=== PATIENT | male | born 1965 | race Caucasian/White ===

== ENCOUNTER 2017-07-11 00:48 | Inpatient (IN) | payer MEDICAID ==
[~2017-07-11] VITALS: Ht 172.7 cm; Wt 66.7 kg
[2017-07-11] VITALS (63 sets, daily range): BP systolic 62–149; BP diastolic 49–112
[2017-07-11] MEDS ORDERED: SODIUM CHLORIDE 0.9% 1,000 ML IV ONE (01:08)
[2017-07-11] MEDS ORDERED: PROPOFOL 10MG/ML 100ML 100 ML IV ONE (01:15)
[2017-07-11 01:25] LABS: BG BASE EXCESS -13.7 mmol/L (-2.0-2.0); BG CARBOXYHEMOGLOBIN 48.1 % (0.5-1.5); BG DEOXYHEMOGLOBIN 1.4 % (0.0-5.0); BG FRACTION INSPIRED OXYGEN 100; BG HCO3 ACT 16.3 mmol/L (22.0-26.0); BG METHEMOGLOBIN 0.3 % (0.0-1.5); BG OXYGEN SATURATION 97.3 % (92.0-98.5); BG OXYHEMOGLOBIN 50.2 % (94.0-97.0); BG PCO2 54.4 mmHg (35.0-45.0); BG PH 7.094 (7.350-7.450); BG PO2 504.9 mmHg (75.0-100.0); BG SAMPLE SITE RIGHT RADIAL; BG TOTAL HEMOGLOBIN 14.2 g/dL (12.0-18.0); BG VENT MODE AMBU BAG
[2017-07-11 01:28] LABS: BASOPHILS % 0.3 % (0.0-2.0); EOSINOPHILS % 1.7 % (0.0-5.0); HEMATOCRIT. 39.5 % (42.0-52.0); HEMOGLOBIN. 13.7 g/dL (14.0-18.0); LYMPHOCYTES % 47.3 % (20.0-50.0); MEAN CORPUSCULAR HEMOGLOBIN 34.1 pg (28.0-32.0); MEAN CORPUSCULAR VOLUME 98.6 fL (80.0-94.0); MEAN PLATELET VOLUME 8.1 fl (7.4-10.4); MONOCYTES % 2.3 % (2.0-8.0); NEUTROPHILS % 48.4 % (40.0-76.0); PLATELET 153 x1000/uL (130-400); RED BLOOD CELL COUNT 4.01 mill/uL (4.7-6.1); RED CELL DISTRIBUTION WIDTH 14.8 % (11.6-14.6)
[2017-07-11 01:44] LABS: CLARITY URINE CLEAR (CLEAR); COLOR URINE YELLOW (YELLOW); KETONES URINE NEGATIVE (NEGATIVE); LEUKOCYTE ESTERASE URINE NEGATIVE (NEGATIVE); NITRITE URINE NEGATIVE (NEGATIVE); OCCULT BLOOD URINE TRACE (NEGATIVE); PROTEIN URINE NEGATIVE (NEGATIVE); SPECIFIC GRAVITY URINE 1.009 (1.005-1.030); UROBILINOGEN URINE 0.2 E.U./dL (0.2-1.0)
[2017-07-11 01:53] LABS: CARBON DIOXIDE 16 mEq/L (21-32); CHLORIDE 103 mEq/L (98-107); ETHANOL BLOOD < 10 mg/dL
[2017-07-11 01:56] LABS: *AMPHETAMINES SCREEN URINE NEGATIVE (NEGATIVE); *BARBITURATES SCREEN URINE NEGATIVE (NEGATIVE); *BENZODIAZEPINES SCREEN URINE PRESUMTIVE POSITIVE (NEGATIVE); *COCAINE SCREEN URINE NEGATIVE (NEGATIVE); CANNABINOID URINE SCREEN NEGATIVE (NEGATIVE); METHADONE URINE SCREEN NEGATIVE (NEGATIVE); OPIATES URINE SCREEN NEGATIVE (NEGATIVE); PHENCYCLIDINE URINE SCREEN NEGATIVE (NEGATIVE)
[2017-07-11] MEDS ORDERED: ASPIRIN 300MG SUPP PR ONE (02:30)
[2017-07-11] MEDS ORDERED: FENTANYL CITRATE/PF 500 MCG in SODIUM CHLORIDE 0.9% 40 ML IV PRN ×2 (03:15→04:00)
[2017-07-11] MEDS ORDERED: POTASSIUM CHLORIDE INJ 40 MEQ in DEXT 5% WATER 250 ML IV ONE (03:45)
[2017-07-11] MEDS ORDERED: POTASSIUM CHLORIDE INJ 40 MEQ in DEXT 5% WATER 500 ML IV SCH (04:00)
[2017-07-11] MEDS ORDERED: NOREPINEPHRINE 8 MG in DEXT 5% WATER 242 ML IV PRN (05:56)
[2017-07-11 08:28] LABS: BG BASE EXCESS -7.1 mmol/L (-2.0-2.0); BG CARBOXYHEMOGLOBIN 2.3 % (0.5-1.5); BG DEOXYHEMOGLOBIN 9.2 % (0.0-5.0); BG FRACTION INSPIRED OXYGEN 100; BG HCO3 ACT 18.8 mmol/L (22.0-26.0); BG METHEMOGLOBIN 0.3 % (0.0-1.5); BG OXYGEN SATURATION 90.6 % (92.0-98.5); BG OXYHEMOGLOBIN 88.2 % (94.0-97.0); BG PCO2 39.2 mmHg (35.0-45.0); BG PH 7.298 (7.350-7.450); BG PO2 64.4 mmHg (75.0-100.0); BG SAMPLE SITE RIGHT BRACHIAL; BG TIDAL VOLUME(mL) 650 mL; BG TOTAL HEMOGLOBIN 12.4 g/dL (12.0-18.0); BG VENT MODE VENT - A/C; BG VENT RATE 15 set
[2017-07-11] MEDS: METHYLPREDNISOLONE SOD SUCC 40 MG/ML VIAL IV SCH ×3 (08:44→22:02)
[2017-07-11] MEDS: ENOXAPARIN 40MG/0.4ML SYR SUBCUT SCH (08:44)
[2017-07-11] MEDS: PANTOPRAZOLE SODIUM 40 MG/VIAL IV SCH (08:44)
[2017-07-11] MEDS: DEXT 5%/0.9% NACL 1,000 ML IV SCH (08:45)
[2017-07-11] MEDS: IPRATROPIUM/ALBUTEROL 0.5-3(2.5)MG/3ML NEB HHN SCH ×3 (10:11→15:44)
[2017-07-11] MEDS ORDERED: EPINEPHRINE 0.1MG/ML (1:10,000) 10ML SYR ONE (10:24)
[2017-07-11] MEDS ORDERED: VECURONIUM BROMIDE 10 MG/VIAL IV ONE (10:24)
[2017-07-11] MEDS ORDERED: SODIUM BICARBONATE 7.5% 0.9 MEQ/ML 50ML SYR IV ONE (10:24)
[2017-07-11] MEDS ORDERED: STERILE WATER FOR INJECTION 10ML VIAL ONE (10:24)
[2017-07-11] MEDS ORDERED: CALCIUM CHLORIDE 1GM/10ML SYR IV ONE (10:24)
[2017-07-11] MEDS ORDERED: ETOMIDATE 2MG/ML 10ML VIAL IV ONE (10:24)
[2017-07-11] MEDS ORDERED: PHEN100C4 PO (10:43)
[2017-07-11] MEDS: PROPOFOL 10MG/ML 100ML 100 ML IV PRN (10:48)
[2017-07-11] MEDS: FENTANYL CITRATE/PF 500 MCG in SODIUM CHLORIDE 0.9% 40 ML IV PRN ×2 (11:25→19:24)
[2017-07-11 11:49] LABS: HEMATOCRIT. 34.3 % (42.0-52.0); HEMOGLOBIN. 11.8 g/dL (14.0-18.0); MEAN CORPUSCULAR HEMOGLOBIN 32.9 pg (28.0-32.0); MEAN CORPUSCULAR VOLUME 95.8 fL (80.0-94.0); MEAN PLATELET VOLUME 7.9 fl (7.4-10.4); PLATELET 107 x1000/uL (130-400); RED BLOOD CELL COUNT 3.58 mill/uL (4.7-6.1); RED CELL DISTRIBUTION WIDTH 14.3 % (11.6-14.6)
[2017-07-11 12:01] LABS: INR 1.7; PROTHROMBIN TIME 17.8 sec (9.4-11.6)
[2017-07-11] MEDS: NOREPINEPHRINE 8 MG in DEXT 5% WATER 242 ML IV PRN ×2 (12:17→22:02)
[2017-07-11 12:29] LABS: CARBON DIOXIDE 21 mEq/L (21-32); CHLORIDE 112 mEq/L (98-107)
[2017-07-11 13:46] LABS: PLATELET ESTIMATE SLIGHTLY DECREASED
[2017-07-11] MEDS ORDERED: ASPIRIN 81MG TABLET PO SCH (14:00)
[2017-07-11] MEDS: PHENYTOIN SODIUM 250MG/5ML VIAL IV SCH ×2 (15:19→17:31)
[2017-07-11] MEDS ORDERED: VANCOMYCIN 2,000 MG in DEXT 5% WATER 500 ML IV NR (16:00)
[2017-07-11] MEDS ORDERED: PIPERACILLIN/TAZ 3.375G PREMIX 50 ML IV SCH (18:00)
[2017-07-11] MEDS: PIPERACILLIN/TAZ 3.375G PREMIX 50 ML IV SCH ×2 (18:56→23:43)
[2017-07-11] MEDS: VANCOMYCIN 1 G PREMIX 200 ML IV SCH (23:43)
[2017-07-12] VITALS (92 sets, daily range): BP systolic 86–127; BP diastolic 50–81
[2017-07-12] MEDS: IPRATROPIUM/ALBUTEROL 0.5-3(2.5)MG/3ML NEB HHN SCH ×6 (00:18→20:24)
[2017-07-12] MEDS: DEXT 5%/0.9% NACL 1,000 ML IV SCH ×2 (02:49→21:13)
[2017-07-12] MEDS: PROPOFOL 10MG/ML 100ML 100 ML IV PRN ×2 (02:49→16:06)
[2017-07-12] MEDS: PIPERACILLIN/TAZ 3.375G PREMIX 50 ML IV SCH ×4 (05:35→23:03)
[2017-07-12] MEDS: METHYLPREDNISOLONE SOD SUCC 40 MG/ML VIAL IV SCH ×3 (05:35→21:13)
[2017-07-12] MEDS: FENTANYL CITRATE/PF 500 MCG in SODIUM CHLORIDE 0.9% 40 ML IV PRN ×2 (05:59→15:41)
[2017-07-12 06:18] LABS: CARBON DIOXIDE 21 mEq/L (21-32); CHLORIDE 107 mEq/L (98-107)
[2017-07-12] MEDS ORDERED: PROPOFOL 10MG/ML 100ML 100 ML IV PRN (07:36)
[2017-07-12] MEDS: VANCOMYCIN 1 G PREMIX 200 ML IV SCH ×3 (07:50→23:03)
[2017-07-12 08:14] LABS: BG BASE EXCESS -3.6 mmol/L (-2.0-2.0); BG CARBOXYHEMOGLOBIN 0.2 % (0.5-1.5); BG DEOXYHEMOGLOBIN 1.4 % (0.0-5.0); BG FRACTION INSPIRED OXYGEN 100; BG HCO3 ACT 21.4 mmol/L (22.0-26.0); BG METHEMOGLOBIN 0.4 % (0.0-1.5); BG OXYGEN SATURATION 98.6 % (92.0-98.5); BG PCO2 38.3 mmHg (35.0-45.0); BG PH 7.365 (7.350-7.450); BG PO2 167.9 mmHg (75.0-100.0); BG SAMPLE SITE RIGHT BRACHIAL; BG TIDAL VOLUME(mL) 650 mL; BG TOTAL HEMOGLOBIN 10.6 g/dL (12.0-18.0); BG VENT MODE VENT - A/C; BG VENT RATE 15 set
[2017-07-12 08:54] LABS: HEMATOCRIT. 30.4 % (42.0-52.0); HEMOGLOBIN. 10.2 g/dL (14.0-18.0); MEAN CORPUSCULAR HEMOGLOBIN 32.1 pg (28.0-32.0); MEAN CORPUSCULAR VOLUME 95.7 fL (80.0-94.0); MEAN PLATELET VOLUME 8.5 fl (7.4-10.4); RED BLOOD CELL COUNT 3.17 mill/uL (4.7-6.1); RED CELL DISTRIBUTION WIDTH 14.7 % (11.6-14.6)
[2017-07-12] MEDS: ENOXAPARIN 40MG/0.4ML SYR SUBCUT SCH (09:00)
[2017-07-12 09:01] LABS: PLATELET 92 x1000/uL (130-400)
[2017-07-12] MEDS: PHENYTOIN SODIUM 250MG/5ML VIAL IV SCH ×2 (09:52→18:10)
[2017-07-12] MEDS: PANTOPRAZOLE SODIUM 40 MG/VIAL IV SCH (09:52)
[2017-07-12 10:25] LABS: PLATELET ESTIMATE DECREASED
[2017-07-12 11:39] LABS: T4 FREE 0.84 ng/dL (0.76-1.46)
[2017-07-12 16:08] LABS: TROPONIN I 0.2 ng/mL (0.00-0.04)
[2017-07-12 16:09] LABS: CREATINE KINASE MB FRACTION 3.7 ng/mL (0.5-3.6)
[2017-07-12 16:44] LABS: HEPATITIS B SURFACE ANTIGEN NEGATIVE
[2017-07-12 17:10] LABS: BG BASE EXCESS -1.8 mmol/L (-2.0-2.0); BG CARBOXYHEMOGLOBIN 0.3 % (0.5-1.5); BG DEOXYHEMOGLOBIN 0.8 % (0.0-5.0); BG FRACTION INSPIRED OXYGEN 100; BG HCO3 ACT 22.9 mmol/L (22.0-26.0); BG METHEMOGLOBIN 0.4 % (0.0-1.5); BG OXYGEN SATURATION 99.2 % (92.0-98.5); BG OXYHEMOGLOBIN 98.5 % (94.0-97.0); BG PCO2 38.5 mmHg (35.0-45.0); BG PH 7.392 (7.350-7.450); BG PO2 269.5 mmHg (75.0-100.0); BG SAMPLE SITE RIGHT RADIAL; BG TIDAL VOLUME(mL) 500 mL; BG TOTAL HEMOGLOBIN 10.4 g/dL (12.0-18.0); BG VENT MODE VENT - A/C; BG VENT RATE 16 set
[2017-07-12 17:12] LABS: HEPATITIS B CORE AB IGM NEGATIVE
[2017-07-12 17:14] LABS: HEPATITIS A AB IGM NEGATIVE (NEGATIVE)
[2017-07-12] MEDS: NOREPINEPHRINE 8 MG in DEXT 5% WATER 242 ML IV PRN (18:10)
[2017-07-12] MEDS ORDERED: SODIUM CHLORIDE 10% FOR INH 15ML VIAL NEB INH SCH (19:00)
[2017-07-13] VITALS (94 sets, daily range): BP systolic 85–122; BP diastolic 43–89
[2017-07-13 00:25] LABS: CREATINE KINASE MB FRACTION 2.8 ng/mL (0.5-3.6); TROPONIN I 0.18 ng/mL (0.00-0.04)
[2017-07-13] MEDS: IPRATROPIUM/ALBUTEROL 0.5-3(2.5)MG/3ML NEB HHN SCH ×7 (00:25→23:57)
[2017-07-13] MEDS: FENTANYL CITRATE/PF 500 MCG in SODIUM CHLORIDE 0.9% 40 ML IV PRN ×2 (01:34→13:40)
[2017-07-13] MEDS: METHYLPREDNISOLONE SOD SUCC 40 MG/ML VIAL IV SCH ×3 (05:24→21:59)
[2017-07-13] MEDS: PIPERACILLIN/TAZ 3.375G PREMIX 50 ML IV SCH ×3 (05:24→17:29)
[2017-07-13 06:15] LABS: CARBON DIOXIDE 23 mEq/L (21-32); CHLORIDE 107 mEq/L (98-107)
[2017-07-13 06:19] LABS: VANCOMYCIN TROUGH 29.1 ug/mL (5.0-10.0)
[2017-07-13 06:20] LABS: TROPONIN I 0.13 ng/mL (0.00-0.04)
[2017-07-13] MEDS: PROPOFOL 10MG/ML 100ML 100 ML IV PRN (06:39)
[2017-07-13] MEDS ORDERED: ACETYLCYSTEINE 100MG/ML 10% VIAL 4ML INH SCH (09:00)
[2017-07-13] MEDS ORDERED: MIDAZOLAM HCL 100 MG in DEXT 5% WATER 80 ML IV PRN (09:00)
[2017-07-13] MEDS: ENOXAPARIN 40MG/0.4ML SYR SUBCUT SCH (09:00)
[2017-07-13] MEDS: ASPIRIN 81MG TABLET PO SCH (09:03)
[2017-07-13] MEDS: VANCOMYCIN 1 G PREMIX 200 ML IV SCH (09:03)
[2017-07-13] MEDS: PANTOPRAZOLE SODIUM 40 MG/VIAL IV SCH (09:03)
[2017-07-13] MEDS: PHENYTOIN SODIUM 250MG/5ML VIAL IV SCH ×2 (09:04→16:24)
[2017-07-13 09:39] LABS: BG BASE EXCESS 0.4 mmol/L (-2.0-2.0); BG CARBOXYHEMOGLOBIN 0.3 % (0.5-1.5); BG DEOXYHEMOGLOBIN 0.8 % (0.0-5.0); BG FRACTION INSPIRED OXYGEN 70; BG HCO3 ACT 25.4 mmol/L (22.0-26.0); BG METHEMOGLOBIN 0.4 % (0.0-1.5); BG OXYGEN SATURATION 99.2 % (92.0-98.5); BG OXYHEMOGLOBIN 98.5 % (94.0-97.0); BG PCO2 42.7 mmHg (35.0-45.0); BG PH 7.393 (7.350-7.450); BG PO2 286.8 mmHg (75.0-100.0); BG SAMPLE SITE RIGHT RADIAL; BG TIDAL VOLUME(mL) 500 mL; BG TOTAL HEMOGLOBIN 8.9 g/dL (12.0-18.0); BG VENT MODE VENT - A/C; BG VENT RATE 16 set
[2017-07-13] MEDS: MIDAZOLAM HCL 100 MG in SODIUM CHLORIDE 0.9% 80 ML IV PRN (09:57)
[2017-07-13 13:56] LABS: HEMATOCRIT. 27.1 % (42.0-52.0); HEMOGLOBIN. 9.1 g/dL (14.0-18.0); MEAN CORPUSCULAR HEMOGLOBIN 32.3 pg (28.0-32.0); MEAN PLATELET VOLUME 9.4 fl (7.4-10.4); PLATELET 61 x1000/uL (130-400); RED BLOOD CELL COUNT 2.82 mill/uL (4.7-6.1)
[2017-07-13 14:04] LABS: INR 1.1; PROTHROMBIN TIME 11.8 sec (9.4-11.6)
[2017-07-13 14:32] LABS: CARBON DIOXIDE 26 mEq/L (21-32); CHLORIDE 107 mEq/L (98-107)
[2017-07-13 14:40] LABS: PLATELET ESTIMATE DECREASED
[2017-07-13] MEDS: ACETYLCYSTEINE 200MG/ML 20% VIAL 4ML INH SCH ×3 (15:44→23:57)
[2017-07-13] MEDS: BUDESONIDE 0.5MG/2ML NEB HHN SCH ×2 (15:44→20:35)
[2017-07-13] MEDS: DEXT 5%/0.9% NACL 1,000 ML IV SCH (16:24)
[2017-07-13] MEDS: VANCOMYCIN 1250MG in DEXTROSE 5% WATER 250ML IV SCH (20:35)
[2017-07-14] VITALS (48 sets, daily range): BP systolic 86–132; BP diastolic 57–82
[2017-07-14] MEDS: PIPERACILLIN/TAZ 3.375G PREMIX 50 ML IV SCH ×4 (00:16→17:57)
[2017-07-14] MEDS: IPRATROPIUM/ALBUTEROL 0.5-3(2.5)MG/3ML NEB HHN SCH ×5 (04:03→20:36)
[2017-07-14] MEDS: ACETYLCYSTEINE 200MG/ML 20% VIAL 4ML INH SCH ×5 (04:03→20:37)
[2017-07-14] MEDS: DEXT 5%/0.9% NACL 1,000 ML IV SCH ×3 (05:16→21:38)
[2017-07-14] MEDS: METHYLPREDNISOLONE SOD SUCC 40 MG/ML VIAL IV SCH ×3 (05:16→21:17)
[2017-07-14] MEDS: FENTANYL CITRATE/PF 500 MCG in SODIUM CHLORIDE 0.9% 40 ML IV PRN (05:18)
[2017-07-14] MEDS: BUDESONIDE 0.5MG/2ML NEB HHN SCH ×2 (07:38→20:36)
[2017-07-14 08:11] LABS: BG BASE EXCESS -0.8 mmol/L (-2.0-2.0); BG CARBOXYHEMOGLOBIN 0.2 % (0.5-1.5); BG DEOXYHEMOGLOBIN 1.3 % (0.0-5.0); BG FRACTION INSPIRED OXYGEN 100; BG HCO3 ACT 24.3 mmol/L (22.0-26.0); BG METHEMOGLOBIN 1.1 % (0.0-1.5); BG OXYGEN SATURATION 98.7 % (92.0-98.5); BG OXYHEMOGLOBIN 97.4 % (94.0-97.0); BG PCO2 41.7 mmHg (35.0-45.0); BG PH 7.383 (7.350-7.450); BG PO2 409.1 mmHg (75.0-100.0); BG SAMPLE SITE RIGHT RADIAL; BG TIDAL VOLUME(mL) 500 mL; BG TOTAL HEMOGLOBIN 8.4 g/dL (12.0-18.0); BG VENT MODE VENT - A/C; BG VENT RATE 14 set
[2017-07-14] MEDS: ASPIRIN 81MG TABLET PO SCH (09:00)
[2017-07-14] MEDS ORDERED: DEXTROSE 50% WATER 50ML SYRINGE IV PRN (09:00)
[2017-07-14] MEDS ORDERED: PANTOPRAZOLE SODIUM 40 MG/VIAL IV SCH (09:00)
[2017-07-14] MEDS: PANTOPRAZOLE SODIUM 40 MG/VIAL IV SCH (09:36)
[2017-07-14] MEDS: VANCOMYCIN 1250MG in DEXTROSE 5% WATER 250ML IV SCH ×2 (09:36→21:05)
[2017-07-14] MEDS: PHENYTOIN SODIUM 250MG/5ML VIAL IV SCH ×2 (09:36→16:31)
[2017-07-14] MEDS ORDERED: BLOOD SUGAR DIAGNOSTIC STRIP TEST SCH (11:30)
[2017-07-14] MEDS ORDERED: INSULIN LISPRO 100 UNITS/ML SUBCUT SCH (12:00)
[2017-07-14] MEDS: MIDAZOLAM HCL 100 MG in SODIUM CHLORIDE 0.9% 80 ML IV PRN (13:36)
[2017-07-14] MEDS ORDERED: METHYLPREDNISOLONE SOD SUCC 40 MG/ML VIAL ONE (20:52)
[2017-07-15] VITALS (47 sets, daily range): BP systolic 95–133; BP diastolic 57–88
[2017-07-15] MEDS: FENTANYL CITRATE/PF 500 MCG in SODIUM CHLORIDE 0.9% 40 ML IV PRN ×2 (00:10→12:37)
[2017-07-15] MEDS: PIPERACILLIN/TAZ 3.375G PREMIX 50 ML IV SCH ×4 (00:12→17:55)
[2017-07-15] MEDS: IPRATROPIUM/ALBUTEROL 0.5-3(2.5)MG/3ML NEB HHN SCH ×7 (00:21→23:53)
[2017-07-15] MEDS: ACETYLCYSTEINE 200MG/ML 20% VIAL 4ML INH SCH ×6 (00:22→23:53)
[2017-07-15] MEDS: MIDAZOLAM HCL 100 MG in SODIUM CHLORIDE 0.9% 80 ML IV PRN ×3 (02:35→22:20)
[2017-07-15 05:51] LABS: BASOPHILS % 0.3 % (0.0-2.0); EOSINOPHILS % 0.4 % (0.0-5.0); HEMATOCRIT. 22.4 % (42.0-52.0); HEMOGLOBIN. 7.8 g/dL (14.0-18.0); LYMPHOCYTES % 7.2 % (20.0-50.0); MEAN CORPUSCULAR HEMOGLOBIN 33.1 pg (28.0-32.0); MEAN CORPUSCULAR VOLUME 95.7 fL (80.0-94.0); MEAN PLATELET VOLUME 9.4 fl (7.4-10.4); MONOCYTES % 6.8 % (2.0-8.0); NEUTROPHILS % 85.3 % (40.0-76.0); PLATELET 66 x1000/uL (130-400); RED BLOOD CELL COUNT 2.35 mill/uL (4.7-6.1); RED CELL DISTRIBUTION WIDTH 14.6 % (11.6-14.6)
[2017-07-15] MEDS: METHYLPREDNISOLONE SOD SUCC 40 MG/ML VIAL IV SCH (06:02)
[2017-07-15 06:37] LABS: CARBON DIOXIDE 26 mEq/L (21-32); CHLORIDE 116 mEq/L (98-107)
[2017-07-15] MEDS: BUDESONIDE 0.5MG/2ML NEB HHN SCH ×2 (08:15→20:12)
[2017-07-15] MEDS: PANTOPRAZOLE SODIUM 40 MG/VIAL IV SCH (08:46)
[2017-07-15] MEDS: PHENYTOIN SODIUM 250MG/5ML VIAL IV SCH ×2 (08:46→16:35)
[2017-07-15] MEDS: ASPIRIN 81MG TABLET PO SCH (08:47)
[2017-07-15] MEDS: DEXT 5%/0.9% NACL 1,000 ML IV SCH ×2 (10:44→22:28)
[2017-07-15] MEDS: METHYLPREDNISOLONE SOD SUCC 125 MG/2 ML VIAL IV SCH ×3 (10:44→22:19)
[2017-07-15] MEDS: VANCOMYCIN 1500MG in DEXTROSE 5% WATER 250ML IV SCH (15:17)
[2017-07-16] VITALS (47 sets, daily range): BP systolic 113–146; BP diastolic 73–93
[2017-07-16] MEDS: PIPERACILLIN/TAZ 3.375G PREMIX 50 ML IV SCH ×4 (00:23→18:57)
[2017-07-16] MEDS: ACETYLCYSTEINE 200MG/ML 20% VIAL 4ML INH SCH ×5 (03:01→20:47)
[2017-07-16] MEDS: IPRATROPIUM/ALBUTEROL 0.5-3(2.5)MG/3ML NEB HHN SCH ×6 (03:01→20:48)
[2017-07-16] MEDS: METHYLPREDNISOLONE SOD SUCC 125 MG/2 ML VIAL IV SCH ×4 (04:48→22:01)
[2017-07-16] MEDS: BUDESONIDE 0.5MG/2ML NEB HHN SCH (08:16)
[2017-07-16] MEDS: ASPIRIN 81MG TABLET PO SCH (08:42)
[2017-07-16] MEDS: VANCOMYCIN 1500MG in DEXTROSE 5% WATER 250ML IV SCH (08:42)
[2017-07-16] MEDS: MIDAZOLAM HCL 100 MG in SODIUM CHLORIDE 0.9% 80 ML IV PRN ×2 (08:46→20:23)
[2017-07-16] MEDS: PANTOPRAZOLE SODIUM 40 MG/VIAL IV SCH (08:53)
[2017-07-16] MEDS: PHENYTOIN SODIUM 250MG/5ML VIAL IV SCH ×2 (08:53→16:54)
[2017-07-16] MEDS: FENTANYL CITRATE/PF 500 MCG in SODIUM CHLORIDE 0.9% 40 ML IV PRN (09:22)
[2017-07-16 12:15] LABS: BG BASE EXCESS 0.7 mmol/L (-2.0-2.0); BG CARBOXYHEMOGLOBIN 0.3 % (0.5-1.5); BG DEOXYHEMOGLOBIN 2.7 % (0.0-5.0); BG HCO3 ACT 25.7 mmol/L (22.0-26.0); BG METHEMOGLOBIN 0.3 % (0.0-1.5); BG OXYGEN SATURATION 97.3 % (92.0-98.5); BG OXYHEMOGLOBIN 96.7 % (94.0-97.0); BG PCO2 42.6 mmHg (35.0-45.0); BG PH 7.398 (7.350-7.450); BG PO2 99.9 mmHg (75.0-100.0); BG SAMPLE SITE RIGHT RADIAL; BG TIDAL VOLUME(mL) 500 mL; BG TOTAL HEMOGLOBIN 9.5 g/dL (12.0-18.0); BG VENT MODE VENT - SIMV; BG VENT RATE 10 set
[2017-07-16] MEDS: DEXT 5%/0.9% NACL 1,000 ML IV SCH ×2 (16:56→23:30)
[2017-07-17] VITALS (49 sets, daily range): BP systolic 112–146; BP diastolic 44–97
[2017-07-17] MEDS: ACETYLCYSTEINE 200MG/ML 20% VIAL 4ML INH SCH ×6 (00:25→19:44)
[2017-07-17] MEDS: IPRATROPIUM/ALBUTEROL 0.5-3(2.5)MG/3ML NEB HHN SCH ×6 (00:26→19:45)
[2017-07-17] MEDS: PIPERACILLIN/TAZ 3.375G PREMIX 50 ML IV SCH ×4 (00:41→17:51)
[2017-07-17] MEDS: FENTANYL CITRATE/PF 500 MCG in SODIUM CHLORIDE 0.9% 40 ML IV PRN ×3 (00:42→17:20)
[2017-07-17] MEDS: METHYLPREDNISOLONE SOD SUCC 125 MG/2 ML VIAL IV SCH ×3 (03:03→17:51)
[2017-07-17] MEDS: VANCOMYCIN 1500MG in DEXTROSE 5% WATER 250ML IV SCH ×2 (03:03→21:35)
[2017-07-17 05:26] LABS: MEAN CORPUSCULAR HEMOGLOBIN 32.3 pg (28.0-32.0); MEAN CORPUSCULAR VOLUME 96.5 fL (80.0-94.0); MEAN PLATELET VOLUME 8.9 fl (7.4-10.4); PLATELET 97 x1000/uL (130-400); RED BLOOD CELL COUNT 2.49 mill/uL (4.7-6.1); RED CELL DISTRIBUTION WIDTH 15.3 % (11.6-14.6)
[2017-07-17 06:23] LABS: CARBON DIOXIDE 29 mEq/L (21-32); CHLORIDE 120 mEq/L (98-107)
[2017-07-17] MEDS: MIDAZOLAM HCL 100 MG in SODIUM CHLORIDE 0.9% 80 ML IV PRN ×2 (07:25→18:41)
[2017-07-17 07:52] LABS: PLATELET ESTIMATE DECREASED
[2017-07-17] MEDS: ASPIRIN 81MG TABLET PO SCH (08:04)
[2017-07-17] MEDS: PHENYTOIN SODIUM 250MG/5ML VIAL IV SCH (08:05)
[2017-07-17] MEDS: PANTOPRAZOLE SODIUM 40 MG/VIAL IV SCH (08:05)
[2017-07-17] MEDS ORDERED: DEXTROSE 50% WATER 50ML SYRINGE IV PRN (10:15)
[2017-07-17] MEDS ORDERED: BISACODYL 10MG SUPP PR PRN (10:15)
[2017-07-17] MEDS: QUETIAPINE FUMARATE 25MG TABLET PO SCH ×2 (10:34→21:35)
[2017-07-17 11:00] LABS: BG BASE EXCESS -0.6 mmol/L (-2.0-2.0); BG CARBOXYHEMOGLOBIN 0.3 % (0.5-1.5); BG DEOXYHEMOGLOBIN 2.7 % (0.0-5.0); BG FRACTION INSPIRED OXYGEN 35; BG HCO3 ACT 24.3 mmol/L (22.0-26.0); BG METHEMOGLOBIN 0.8 % (0.0-1.5); BG OXYGEN SATURATION 97.3 % (92.0-98.5); BG OXYHEMOGLOBIN 96.2 % (94.0-97.0); BG PCO2 40.9 mmHg (35.0-45.0); BG PH 7.392 (7.350-7.450); BG PO2 107.9 mmHg (75.0-100.0); BG SAMPLE SITE RIGHT BRACHIAL; BG TIDAL VOLUME(mL) 500 mL; BG TOTAL HEMOGLOBIN 11.5 g/dL (12.0-18.0); BG VENT MODE VENT - A/C; BG VENT RATE 14 set
[2017-07-17] MEDS: BLOOD SUGAR DIAGNOSTIC STRIP TEST SCH ×3 (11:32→21:38)
[2017-07-17] MEDS: INSULIN LISPRO 100 UNITS/ML SUBCUT SCH ×3 (11:39→21:37)
[2017-07-17] MEDS: PHENYTOIN SODIUM 100MG/2ML VIAL IV SCH (17:51)
[2017-07-17] MEDS ORDERED: LACTULOSE 20G/30ML UDC PO PRN (21:00)
[2017-07-18] VITALS (49 sets, daily range): BP systolic 112–148; BP diastolic 70–101
[2017-07-18] MEDS: ACETYLCYSTEINE 200MG/ML 20% VIAL 4ML INH SCH ×6 (00:08→20:00)
[2017-07-18] MEDS: IPRATROPIUM/ALBUTEROL 0.5-3(2.5)MG/3ML NEB HHN SCH ×6 (00:08→20:00)
[2017-07-18] MEDS: PIPERACILLIN/TAZ 3.375G PREMIX 50 ML IV SCH ×5 (01:03→23:42)
[2017-07-18] MEDS: FENTANYL CITRATE/PF 500 MCG in SODIUM CHLORIDE 0.9% 40 ML IV PRN ×4 (01:33→18:59)
[2017-07-18] MEDS: METHYLPREDNISOLONE SOD SUCC 125 MG/2 ML VIAL IV SCH ×3 (02:50→17:46)
[2017-07-18] MEDS: MIDAZOLAM HCL 100 MG in SODIUM CHLORIDE 0.9% 80 ML IV PRN (05:37)
[2017-07-18 05:55] LABS: BASOPHILS % 0.4 % (0.0-2.0); EOSINOPHILS % 2.2 % (0.0-5.0); HEMOGLOBIN. 8.5 g/dL (14.0-18.0); MEAN CORPUSCULAR VOLUME 98.2 fL (80.0-94.0); MEAN PLATELET VOLUME 8.6 fl (7.4-10.4); MONOCYTES % 8.8 % (2.0-8.0); NEUTROPHILS % 79.6 % (40.0-76.0); PLATELET 116 x1000/uL (130-400); RED BLOOD CELL COUNT 2.65 mill/uL (4.7-6.1); RED CELL DISTRIBUTION WIDTH 15.7 % (11.6-14.6)
[2017-07-18] MEDS: BLOOD SUGAR DIAGNOSTIC STRIP TEST SCH ×4 (06:22→23:34)
[2017-07-18] MEDS: INSULIN LISPRO 100 UNITS/ML SUBCUT SCH ×4 (06:23→23:43)
[2017-07-18 08:44] LABS: CARBON DIOXIDE 27 mEq/L (21-32); CHLORIDE 122 mEq/L (98-107)
[2017-07-18] MEDS: PANTOPRAZOLE SODIUM 40 MG/VIAL IV SCH (08:48)
[2017-07-18] MEDS: PHENYTOIN SODIUM 100MG/2ML VIAL IV SCH ×2 (08:48→16:39)
[2017-07-18] MEDS: QUETIAPINE FUMARATE 25MG TABLET PO SCH ×2 (08:48→20:50)
[2017-07-18] MEDS: DEXTROSE 5% WATER 1,000 ML IV SCH ×2 (10:14→23:42)
[2017-07-18] MEDS: MIDAZOLAM HCL 100 MG in DEXT 5% WATER 80 ML IV PRN (14:32)
[2017-07-18] MEDS: VANCOMYCIN 1250MG in DEXTROSE 5% WATER 250ML IV SCH (18:23)
[2017-07-19] VITALS (48 sets, daily range): BP systolic 121–162; BP diastolic 72–107
[2017-07-19] MEDS: IPRATROPIUM/ALBUTEROL 0.5-3(2.5)MG/3ML NEB HHN SCH ×6 (00:07→20:06)
[2017-07-19] MEDS: METHYLPREDNISOLONE SOD SUCC 125 MG/2 ML VIAL IV SCH ×2 (01:19→10:23)
[2017-07-19] MEDS: FENTANYL CITRATE/PF 500 MCG in SODIUM CHLORIDE 0.9% 40 ML IV PRN ×4 (01:19→21:18)
[2017-07-19] MEDS: MIDAZOLAM HCL 100 MG in DEXT 5% WATER 80 ML IV PRN (02:38)
[2017-07-19] MEDS: DEXTROSE 5% WATER 1,000 ML IV SCH ×2 (05:00→12:33)
[2017-07-19] MEDS: BLOOD SUGAR DIAGNOSTIC STRIP TEST SCH ×4 (05:11→23:59)
[2017-07-19] MEDS: PIPERACILLIN/TAZ 3.375G PREMIX 50 ML IV SCH ×4 (05:14→23:59)
[2017-07-19] MEDS: INSULIN LISPRO 100 UNITS/ML SUBCUT SCH ×3 (05:15→18:43)
[2017-07-19] MEDS: PANTOPRAZOLE SODIUM 40 MG/VIAL IV SCH (08:00)
[2017-07-19] MEDS: PHENYTOIN SODIUM 100MG/2ML VIAL IV SCH ×2 (08:01→17:47)
[2017-07-19] MEDS: QUETIAPINE FUMARATE 25MG TABLET PO SCH ×2 (08:01→20:28)
[2017-07-19 09:41] LABS: BG BASE EXCESS 1.3 mmol/L (-2.0-2.0); BG CARBOXYHEMOGLOBIN 0.4 % (0.5-1.5); BG DEOXYHEMOGLOBIN 10.2 % (0.0-5.0); BG FRACTION INSPIRED OXYGEN 35; BG METHEMOGLOBIN 0.5 % (0.0-1.5); BG OXYGEN SATURATION 89.7 % (92.0-98.5); BG OXYHEMOGLOBIN 88.9 % (94.0-97.0); BG PCO2 48.9 mmHg (35.0-45.0); BG PRESSURE SUPPORT 12; BG SAMPLE SITE RIGHT RADIAL; BG TIDAL VOLUME(mL) 500 mL; BG TOTAL HEMOGLOBIN 8.2 g/dL (12.0-18.0); BG VENT MODE VENT - SIMV; BG VENT RATE 10 set
[2017-07-19] MEDS: METHYLPREDNISOLONE SOD SUCC 40 MG/ML VIAL IV SCH ×2 (12:32→20:28)
[2017-07-19 12:55] LABS: HEMATOCRIT. 25.2 % (42.0-52.0); HEMOGLOBIN. 8.3 g/dL (14.0-18.0); MEAN CORPUSCULAR HEMOGLOBIN 32.1 pg (28.0-32.0); MEAN PLATELET VOLUME 7.5 fl (7.4-10.4); PLATELET 158 x1000/uL (130-400); RED CELL DISTRIBUTION WIDTH 15.7 % (11.6-14.6)
[2017-07-19 13:06] LABS: CARBON DIOXIDE 30 mEq/L (21-32); CHLORIDE 114 mEq/L (98-107)
[2017-07-19] MEDS ORDERED: POTASSIUM CHLORIDE 20MEQ/PACKET PO NR (13:30)
[2017-07-19 13:52] LABS: PLATELET ESTIMATE NORMAL
[2017-07-19] MEDS: VANCOMYCIN 1250MG in DEXTROSE 5% WATER 250ML IV SCH (13:55)
[2017-07-19] MEDS ORDERED: MIDAZOLAM HCL 100 MG in SODIUM CHLORIDE 0.9% 80 ML IV ONE (15:00)
[2017-07-20] VITALS (47 sets, daily range): BP systolic 123–160; BP diastolic 72–103
[2017-07-20] MEDS: INSULIN LISPRO 100 UNITS/ML SUBCUT SCH ×4 (00:07→18:13)
[2017-07-20] MEDS ORDERED: MIDAZOLAM HCL 100 MG in SODIUM CHLORIDE 0.9% 100 ML IV PRN (00:15)
[2017-07-20] MEDS: IPRATROPIUM/ALBUTEROL 0.5-3(2.5)MG/3ML NEB HHN SCH ×6 (00:23→20:32)
[2017-07-20] MEDS ORDERED: MIDAZOLAM HCL 100 MG in SODIUM CHLORIDE 0.9% 80 ML IV PRN (00:34)
[2017-07-20] MEDS: DEXTROSE 5% WATER 1,000 ML IV SCH ×3 (01:37→20:34)
[2017-07-20] MEDS: METHYLPREDNISOLONE SOD SUCC 40 MG/ML VIAL IV SCH ×3 (04:12→20:34)
[2017-07-20 05:34] LABS: HEMATOCRIT. 23.5 % (42.0-52.0); HEMOGLOBIN. 7.8 g/dL (14.0-18.0); MEAN CORPUSCULAR VOLUME 96.5 fL (80.0-94.0); MEAN PLATELET VOLUME 8.4 fl (7.4-10.4); PLATELET 149 x1000/uL (130-400); RED BLOOD CELL COUNT 2.43 mill/uL (4.7-6.1); RED CELL DISTRIBUTION WIDTH 15.1 % (11.6-14.6)
[2017-07-20] MEDS: FENTANYL CITRATE/PF 500 MCG in SODIUM CHLORIDE 0.9% 40 ML IV PRN (05:44)
[2017-07-20] MEDS: PIPERACILLIN/TAZ 3.375G PREMIX 50 ML IV SCH ×3 (05:44→17:02)
[2017-07-20] MEDS: BLOOD SUGAR DIAGNOSTIC STRIP TEST SCH ×3 (05:49→17:14)
[2017-07-20 06:29] LABS: CARBON DIOXIDE 29 mEq/L (21-32); CHLORIDE 112 mEq/L (98-107)
[2017-07-20] MEDS: SODIUM CHLORIDE 0.45% IV SCH (06:53)
[2017-07-20] MEDS: VANCOMYCIN IV SCH (06:53)
[2017-07-20 08:01] LABS: BG BASE EXCESS 1.8 mmol/L (-2.0-2.0); BG CARBOXYHEMOGLOBIN 0.1 % (0.5-1.5); BG DEOXYHEMOGLOBIN 0.7 % (0.0-5.0); BG FRACTION INSPIRED OXYGEN 45; BG METHEMOGLOBIN 0.3 % (0.0-1.5); BG OXYGEN SATURATION 99.3 % (92.0-98.5); BG OXYHEMOGLOBIN 98.9 % (94.0-97.0); BG PCO2 45.5 mmHg (35.0-45.0); BG PH 7.391 (7.350-7.450); BG PO2 173.9 mmHg (75.0-100.0); BG PRESSURE SUPPORT 12; BG SAMPLE SITE RIGHT RADIAL; BG TIDAL VOLUME(mL) 500 mL; BG TOTAL HEMOGLOBIN 8.5 g/dL (12.0-18.0); BG VENT MODE VENT - SIMV; BG VENT RATE 10 set
[2017-07-20 08:32] LABS: PLATELET ESTIMATE NORMAL
[2017-07-20] MEDS: PANTOPRAZOLE SODIUM 40 MG/VIAL IV SCH (09:00)
[2017-07-20] MEDS: PHENYTOIN SODIUM 100MG/2ML VIAL IV SCH ×2 (09:01→16:17)
[2017-07-20] MEDS: QUETIAPINE FUMARATE 25MG TABLET PO SCH ×2 (09:01→20:34)
[2017-07-20 13:40] LABS: BG BASE EXCESS -0.2 mmol/L (-2.0-2.0); BG CARBOXYHEMOGLOBIN 0.3 % (0.5-1.5); BG DEOXYHEMOGLOBIN 1.5 % (0.0-5.0); BG FRACTION INSPIRED OXYGEN 45; BG HCO3 ACT 24.8 mmol/L (22.0-26.0); BG METHEMOGLOBIN 0.8 % (0.0-1.5); BG OXYGEN SATURATION 98.5 % (92.0-98.5); BG OXYHEMOGLOBIN 97.4 % (94.0-97.0); BG PCO2 41.9 mmHg (35.0-45.0); BG PO2 150.6 mmHg (75.0-100.0); BG PRESSURE SUPPORT 8; BG SAMPLE SITE RIGHT RADIAL; BG TIDAL VOLUME(mL) 500 mL; BG TOTAL HEMOGLOBIN 8.5 g/dL (12.0-18.0); BG VENT MODE VENT - SIMV; BG VENT RATE 6 set
[2017-07-20 16:49] LABS: BG BASE EXCESS 1.8 mmol/L (-2.0-2.0); BG CARBOXYHEMOGLOBIN 0.3 % (0.5-1.5); BG DEOXYHEMOGLOBIN 1.5 % (0.0-5.0); BG FRACTION INSPIRED OXYGEN 45; BG HCO3 ACT 27.4 mmol/L (22.0-26.0); BG METHEMOGLOBIN 0.4 % (0.0-1.5); BG OXYGEN SATURATION 98.5 % (92.0-98.5); BG OXYHEMOGLOBIN 97.8 % (94.0-97.0); BG PCO2 47.2 mmHg (35.0-45.0); BG PH 7.381 (7.350-7.450); BG PO2 158.7 mmHg (75.0-100.0); BG PRESSURE SUPPORT 8; BG SAMPLE SITE RIGHT RADIAL; BG VENT MODE VENT - CPAP
[2017-07-20] MEDS ORDERED: RACEPINEPHRINE 2.25% 0.5ML NEB VIAL HHN NR (17:19)
[2017-07-20] MEDS ORDERED: RACEPINEPHRINE 2.25% 0.5ML NEB VIAL HHN PRN (20:00)
[2017-07-20] MEDS: ACETAMINOPHEN 325MG TABLET PO PRN (21:29)
[2017-07-21] VITALS (44 sets, daily range): BP systolic 124–163; BP diastolic 43–103
[2017-07-21] MEDS: SODIUM CHLORIDE 0.45% IV SCH (00:01)
[2017-07-21] MEDS: PIPERACILLIN/TAZ 3.375G PREMIX 50 ML IV SCH ×4 (00:01→17:10)
[2017-07-21] MEDS: VANCOMYCIN IV SCH (00:01)
[2017-07-21] MEDS: BLOOD SUGAR DIAGNOSTIC STRIP TEST SCH ×4 (00:01→17:03)
[2017-07-21] MEDS: IPRATROPIUM/ALBUTEROL 0.5-3(2.5)MG/3ML NEB HHN SCH ×6 (00:37→20:09)
[2017-07-21] MEDS: METHYLPREDNISOLONE SOD SUCC 40 MG/ML VIAL IV SCH ×2 (04:21→17:10)
[2017-07-21] MEDS: INSULIN LISPRO 100 UNITS/ML SUBCUT SCH ×4 (05:51→17:19)
[2017-07-21] MEDS: DEXTROSE 5% WATER 1,000 ML IV SCH (06:48)
[2017-07-21 07:47] LABS: BG BASE EXCESS 2.8 mmol/L (-2.0-2.0); BG CARBOXYHEMOGLOBIN 0.4 % (0.5-1.5); BG DEOXYHEMOGLOBIN 3.1 % (0.0-5.0); BG HCO3 ACT 27.1 mmol/L (22.0-26.0); BG METHEMOGLOBIN 0.6 % (0.0-1.5); BG OXYGEN SATURATION 96.9 % (92.0-98.5); BG OXYHEMOGLOBIN 95.9 % (94.0-97.0); BG PCO2 40.4 mmHg (35.0-45.0); BG PH 7.444 (7.350-7.450); BG PO2 94.9 mmHg (75.0-100.0); BG SAMPLE SITE RIGHT RADIAL; BG TOTAL HEMOGLOBIN 8.7 g/dL (12.0-18.0); BG VENT MODE NASAL CANNULA
[2017-07-21] MEDS: PANTOPRAZOLE SODIUM 40 MG/VIAL IV SCH (08:27)
[2017-07-21] MEDS: QUETIAPINE FUMARATE 25MG TABLET PO SCH ×2 (08:27→20:09)
[2017-07-21] MEDS: ACETAMINOPHEN 325MG TABLET PO PRN (08:27)
[2017-07-21] MEDS: PHENYTOIN SODIUM 100MG/2ML VIAL IV SCH ×2 (08:27→17:10)
[2017-07-21] MEDS: LORAZEPAM 2MG/ML CPJ IV PRN (21:48)
[2017-07-21 22:13] LABS: BG BASE EXCESS 2.6 mmol/L (-2.0-2.0); BG CARBOXYHEMOGLOBIN 0.3 % (0.5-1.5); BG DEOXYHEMOGLOBIN 3.3 % (0.0-5.0); BG FRACTION INSPIRED OXYGEN 32; BG HCO3 ACT 26.4 mmol/L (22.0-26.0); BG METHEMOGLOBIN 0.1 % (0.0-1.5); BG OXYGEN SATURATION 96.7 % (92.0-98.5); BG OXYHEMOGLOBIN 96.3 % (94.0-97.0); BG PCO2 37.5 mmHg (35.0-45.0); BG PH 7.465 (7.350-7.450); BG PO2 89.5 mmHg (75.0-100.0); BG SAMPLE SITE RIGHT RADIAL; BG TOTAL HEMOGLOBIN 9.3 g/dL (12.0-18.0); BG VENT MODE NASAL CANNULA
[2017-07-22] VITALS (51 sets, daily range): BP systolic 122–177; BP diastolic 73–152
[2017-07-22] MEDS: IPRATROPIUM/ALBUTEROL 0.5-3(2.5)MG/3ML NEB HHN SCH ×6 (00:01→21:02)
[2017-07-22] MEDS: PIPERACILLIN/TAZ 3.375G PREMIX 50 ML IV SCH ×5 (00:22→23:19)
[2017-07-22] MEDS: VANCOMYCIN 1250MG in DEXTROSE 5% WATER 250ML IV SCH ×2 (00:22→23:19)
[2017-07-22] MEDS: BLOOD SUGAR DIAGNOSTIC STRIP TEST SCH ×5 (00:28→23:18)
[2017-07-22] MEDS: ACETAMINOPHEN 325MG TABLET PO PRN (02:46)
[2017-07-22] MEDS: LORAZEPAM 2MG/ML CPJ IV PRN ×2 (04:47→17:42)
[2017-07-22] MEDS: METHYLPREDNISOLONE SOD SUCC 40 MG/ML VIAL IV SCH (04:48)
[2017-07-22] MEDS: INSULIN LISPRO 100 UNITS/ML SUBCUT SCH ×5 (06:31→23:19)
[2017-07-22] MEDS: PHENYTOIN SODIUM 100MG/2ML VIAL IV SCH ×2 (08:25→17:42)
[2017-07-22] MEDS: QUETIAPINE FUMARATE 25MG TABLET PO SCH ×2 (08:25→21:19)
[2017-07-22] MEDS: PANTOPRAZOLE SODIUM 40 MG/VIAL IV SCH (08:25)
[2017-07-23] VITALS (14 sets, daily range): BP systolic 119–154; BP diastolic 20–91
[2017-07-23] MEDS: IPRATROPIUM/ALBUTEROL 0.5-3(2.5)MG/3ML NEB HHN SCH ×4 (00:53→20:06)
[2017-07-23] MEDS: LORAZEPAM 2MG/ML CPJ IV PRN ×2 (05:19→12:44)
[2017-07-23] MEDS: PIPERACILLIN/TAZ 3.375G PREMIX 50 ML IV SCH ×4 (05:20→23:35)
[2017-07-23] MEDS: BLOOD SUGAR DIAGNOSTIC STRIP TEST SCH ×4 (05:31→23:58)
[2017-07-23] MEDS: INSULIN LISPRO 100 UNITS/ML SUBCUT SCH ×4 (05:31→23:58)
[2017-07-23] MEDS: PANTOPRAZOLE SODIUM 40 MG/VIAL IV SCH (08:51)
[2017-07-23] MEDS: METHYLPREDNISOLONE SOD SUCC 40 MG/ML VIAL IV SCH (08:51)
[2017-07-23] MEDS: QUETIAPINE FUMARATE 25MG TABLET PO SCH ×2 (08:51→21:21)
[2017-07-23] MEDS: PHENYTOIN SODIUM 100MG/2ML VIAL IV SCH ×2 (12:44→18:20)
[2017-07-23] MEDS: ACETAMINOPHEN 325MG TABLET PO PRN (12:44)
[2017-07-23 16:52] LABS: BG BASE EXCESS 4.7 mmol/L (-2.0-2.0); BG CARBOXYHEMOGLOBIN 0.4 % (0.5-1.5); BG DEOXYHEMOGLOBIN 2.9 % (0.0-5.0); BG FRACTION INSPIRED OXYGEN 28; BG HCO3 ACT 28.4 mmol/L (22.0-26.0); BG METHEMOGLOBIN 0.5 % (0.0-1.5); BG OXYGEN SATURATION 97.1 % (92.0-98.5); BG OXYHEMOGLOBIN 96.2 % (94.0-97.0); BG PCO2 38.3 mmHg (35.0-45.0); BG PH 7.488 (7.350-7.450); BG PO2 97.6 mmHg (75.0-100.0); BG SAMPLE SITE RIGHT RADIAL; BG TOTAL HEMOGLOBIN 8.9 g/dL (12.0-18.0); BG VENT MODE NASAL CANNULA
[2017-07-23] MEDS: VANCOMYCIN 1250MG in DEXTROSE 5% WATER 250ML IV SCH (23:58)
[2017-07-24] VITALS (12 sets, daily range): BP systolic 127–144; BP diastolic 75–96
[2017-07-24] MEDS: IPRATROPIUM/ALBUTEROL 0.5-3(2.5)MG/3ML NEB HHN SCH ×6 (00:28→22:59)
[2017-07-24] MEDS: LORAZEPAM 2MG/ML CPJ IV PRN (04:59)
[2017-07-24] MEDS: PIPERACILLIN/TAZ 3.375G PREMIX 50 ML IV SCH ×3 (05:01→18:09)
[2017-07-24] MEDS: INSULIN LISPRO 100 UNITS/ML SUBCUT SCH ×4 (05:40→23:56)
[2017-07-24] MEDS: BLOOD SUGAR DIAGNOSTIC STRIP TEST SCH ×4 (05:41→23:56)
[2017-07-24] MEDS: PANTOPRAZOLE SODIUM 40 MG/VIAL IV SCH (08:21)
[2017-07-24] MEDS: QUETIAPINE FUMARATE 25MG TABLET PO SCH ×2 (08:22→20:28)
[2017-07-24] MEDS: PHENYTOIN SODIUM 100MG/2ML VIAL IV SCH ×2 (08:22→17:37)
[2017-07-24] MEDS: METHYLPREDNISOLONE SOD SUCC 40 MG/ML VIAL IV SCH (08:22)
[2017-07-24] MEDS: ACETAMINOPHEN 325MG TABLET PO PRN (17:37)
[2017-07-24 19:55] LABS: HEMATOCRIT. 24.8 % (42.0-52.0); HEMOGLOBIN. 8.2 g/dL (14.0-18.0); MEAN CORPUSCULAR HEMOGLOBIN 31.7 pg (28.0-32.0); MEAN CORPUSCULAR VOLUME 96.2 fL (80.0-94.0); PLATELET 348 x1000/uL (130-400); RED BLOOD CELL COUNT 2.58 mill/uL (4.7-6.1); RED CELL DISTRIBUTION WIDTH 15.3 % (11.6-14.6)
[2017-07-24 20:13] LABS: CHLORIDE 112 mEq/L (98-107)
[2017-07-24 20:22] LABS: CARBON DIOXIDE 30 mEq/L (21-32)
[2017-07-24 20:38] LABS: PLATELET ESTIMATE NORMAL
[2017-07-24] MEDS ORDERED: VANCOMYCIN 1,250 MG in SODIUM CHLORIDE 0.9% 250 ML IV NR (23:00)
[2017-07-25] VITALS (13 sets, daily range): BP systolic 133–152; BP diastolic 78–97
[2017-07-25] MEDS: IPRATROPIUM/ALBUTEROL 0.5-3(2.5)MG/3ML NEB HHN SCH ×6 (02:37→22:31)
[2017-07-25] MEDS: INSULIN LISPRO 100 UNITS/ML SUBCUT SCH ×3 (05:49→23:47)
[2017-07-25] MEDS: BLOOD SUGAR DIAGNOSTIC STRIP TEST SCH ×3 (05:49→23:46)
[2017-07-25] MEDS: METHYLPREDNISOLONE SOD SUCC 40 MG/ML VIAL IV SCH (08:46)
[2017-07-25] MEDS: PANTOPRAZOLE SODIUM 40 MG/VIAL IV SCH (08:46)
[2017-07-25] MEDS: QUETIAPINE FUMARATE 25MG TABLET PO SCH ×2 (08:47→20:06)
[2017-07-25] MEDS: PHENYTOIN SODIUM 100MG/2ML VIAL IV SCH ×2 (08:54→16:03)
[2017-07-25] MEDS: LORAZEPAM 2MG/ML CPJ IV PRN (16:03)
[2017-07-25] MEDS: ACETAMINOPHEN 325MG TABLET PO PRN (20:06)
[2017-07-26] VITALS (12 sets, daily range): BP systolic 134–148; BP diastolic 79–98
[2017-07-26] MEDS: IPRATROPIUM/ALBUTEROL 0.5-3(2.5)MG/3ML NEB HHN SCH ×6 (01:42→20:09)
[2017-07-26] MEDS: LORAZEPAM 2MG/ML CPJ IV PRN ×2 (03:32→17:11)
[2017-07-26] MEDS: BLOOD SUGAR DIAGNOSTIC STRIP TEST SCH ×3 (05:43→17:43)
[2017-07-26] MEDS: INSULIN LISPRO 100 UNITS/ML SUBCUT SCH ×3 (05:43→17:43)
[2017-07-26] MEDS: ACETAMINOPHEN 325MG TABLET PO PRN ×2 (06:15→20:06)
[2017-07-26] MEDS: PHENYTOIN SODIUM 100MG/2ML VIAL IV SCH ×2 (08:13→17:14)
[2017-07-26] MEDS: PANTOPRAZOLE SODIUM 40 MG/VIAL IV SCH (08:13)
[2017-07-26] MEDS: QUETIAPINE FUMARATE 25MG TABLET PO SCH ×2 (08:14→20:06)
[2017-07-26] MEDS: METHYLPREDNISOLONE SOD SUCC 40 MG/ML VIAL IV SCH (08:14)
[2017-07-26 09:07] LABS: BG BASE EXCESS 4.9 mmol/L (-2.0-2.0); BG CARBOXYHEMOGLOBIN 0.3 % (0.5-1.5); BG DEOXYHEMOGLOBIN 2.9 % (0.0-5.0); BG FRACTION INSPIRED OXYGEN 28; BG HCO3 ACT 29.2 mmol/L (22.0-26.0); BG METHEMOGLOBIN 0.2 % (0.0-1.5); BG OXYGEN SATURATION 97.1 % (92.0-98.5); BG OXYHEMOGLOBIN 96.6 % (94.0-97.0); BG PCO2 42.3 mmHg (35.0-45.0); BG PH 7.457 (7.350-7.450); BG PO2 98.1 mmHg (75.0-100.0); BG SAMPLE SITE RIGHT RADIAL; BG TOTAL HEMOGLOBIN 8.9 g/dL (12.0-18.0); BG VENT MODE NASAL CANNULA
[2017-07-27] VITALS (11 sets, daily range): BP systolic 140–154; BP diastolic 78–94
[2017-07-27] MEDS: IPRATROPIUM/ALBUTEROL 0.5-3(2.5)MG/3ML NEB HHN SCH ×5 (00:14→16:14)
[2017-07-27] MEDS: BLOOD SUGAR DIAGNOSTIC STRIP TEST SCH ×4 (00:46→17:30)
[2017-07-27] MEDS: ACETAMINOPHEN 325MG TABLET PO PRN ×3 (03:53→15:12)
[2017-07-27] MEDS: INSULIN LISPRO 100 UNITS/ML SUBCUT SCH ×4 (07:30→17:30)
[2017-07-27] MEDS: METHYLPREDNISOLONE SOD SUCC 40 MG/ML VIAL IV SCH (08:24)
[2017-07-27] MEDS: PANTOPRAZOLE SODIUM 40 MG/VIAL IV SCH (08:24)
[2017-07-27] MEDS: PHENYTOIN SODIUM 100MG/2ML VIAL IV SCH (08:25)
[2017-07-27] MEDS: QUETIAPINE FUMARATE 25MG TABLET PO SCH (08:25)
[2017-07-27] MEDS ORDERED: ONDANSETRON HCL 4MG/2ML VIAL IV PRN (11:00)
[2017-07-27] MEDS ORDERED: ALBU18HF2 IH (15:22)
[2017-07-27] MEDS ORDERED: LEVO500T2 PO (15:22)
[2017-07-27] MEDS ORDERED: P20 PO (15:23)
[2017-07-27] MEDS ORDERED: PHENYTOIN SODIUM 250MG/5ML VIAL IV SCH (18:30)
== END 2017-07-27 19:05 | disposition home or self-care (01) | DRG 130 ==
LOC: ER 00:48 → EDBD 00:48 → UNDOADMIN 00:49 → MICUNO 00:49 → ENRESERV 04:22 → 6WST 07-23 06:26 → 5EST 07-23 17:32
PROVIDERS: ADMIT Family Medicine; ATTEND Family Medicine
PROC: 5A1955Z Respiratory Ventilation, Greater than 96 Consecutive Hours (ICD-10-PCS; principal; 2017-07-11)
PROC: 0BH17EZ Insertion of Endotracheal Airway into Trachea, Via Natural or Artificial Opening (ICD-10-PCS; 2017-07-11)
PROC: 05H533Z Insertion of Infusion Device into Right Subclavian Vein, Percutaneous Approach (ICD-10-PCS; 2017-07-11)
PROC: B546ZZA Ultrasonography of Right Subclavian Vein, Guidance (ICD-10-PCS; 2017-07-11)
PROC: 5A09357 Assistance with Respiratory Ventilation, Less than 24 Consecutive Hours, Continuous Positive Airway Pressure (ICD-10-PCS; 2017-07-26)
DX: J96.01 Acute respiratory failure with hypoxia (principal); I21.4 Non-ST elevation (NSTEMI) myocardial infarction; R57.9 Shock, unspecified; J69.0 Pneumonitis due to inhalation of food and vomit; G93.41 Metabolic encephalopathy; E87.2 Acidosis; D68.9 Coagulation defect, unspecified; J44.0 Chronic obstructive pulmonary disease with (acute) lower respiratory infection; D69.6 Thrombocytopenia, unspecified; D64.9 Anemia, unspecified; E87.6 Hypokalemia; F79 Unspecified intellectual disabilities; G40.909 Epilepsy, unspecified, not intractable, without status epilepticus; T59.811A Toxic effect of smoke, accidental (unintentional), initial encounter; J70.5 Respiratory conditions due to smoke inhalation; E11.65 Type 2 diabetes mellitus with hyperglycemia; E78.1 Pure hyperglyceridemia; E87.0 Hyperosmolality and hypernatremia; J98.11 Atelectasis; K59.00 Constipation, unspecified; Q02 Microcephaly; T38.0X5A Adverse effect of glucocorticoids and synthetic analogues, initial encounter; Z86.73 Personal history of transient ischemic attack (TIA), and cerebral infarction without residual deficits; Y92.89 Other specified places as the place of occurrence of the external cause
CPT/HCPCS: 31500; 36415; 36569; 36600; 51702; 70450; 71010; 74000; 76937; 80048; 80053; 80061; 80202; 80305; 81001; 82375; 82550; 82553; 82805; 82962; 83036; 83605; 83880; 84439; 84443; 84478; 84484; 85025; 85362; 85379; 85384; 85610; 86705; 86709; 86803; 86850; 86900; 87040; 87070; 87086; 87340; 87493; 92610; 92950; 93005; 93306; 93970; 94002; 94003; 94640; 94660; 94667; 97110; 97163; 97166; 97535; 99291; A4216; A6261; C1725; C9113; G0482; J0171; J1165; J1815; J2060; J2250; J2405; J2543; J2704; J2920; J2930; J3010; J3370; J3480; J3490; J7030; J7040; J7042; J7050; J7060; J7070; J7131; J7608; J7620; J7626